=== PATIENT | male | born 1975 | race Caucasian/White ===

== ENCOUNTER 2018-02-03 12:45 | Emergency (ER) | payer OTHER ==
--- NOTE | 2018-02-03 12:58 | EDM.PDOC ---
ED HPI GENERAL MEDICAL PROBLEM - General Stated Complaint: PAIN ON RT SIDE OF FACE W/ EAR PAIN Time Seen by Provider: 02/03/18 12:58 Source of Information: Reports: Patient History Limitations: Reports: No Limitations - History of Present Illness INITIAL COMMENTS - FREE TEXT/NARRATIVE: HISTORY AND PHYSICAL: History of present illness: [Jimmy is a 42-year-old male here with complaint of right-sided facial pain. He states that 3 days in go he noticed that she would have pain to the top of his right head when he would touch it. He intermittently will get a sharp, shooting pain the top of the head and/or the right ear. He states he has a constant dull ache that is a 2 out of 10 to the right side of the cheek and head. He denies any visual disturbances, fevers, chills, weakness, headache, trauma.] Review of systems: As per history of present illness and below otherwise all systems reviewed and negative. Past medical history: As per history of present illness and as reviewed below otherwise noncontributory. Surgical history: As per history of present illness and as reviewed below otherwise noncontributory. Social history: No reported history of drug or alcohol abuse. Family history: As per history of present illness and as reviewed below otherwise noncontributory. Physical exam: General: Patient sitting comfortably in no acute distress HEENT: Atraumatic, normocephalic, pupils reactive, EOM intact. Negative for conjunctival pallor or scleral icterus. Mucous membranes moist, throat clear. Neck supple, nontender. No tenderness to palpation or bulging of right temporal artery. Lungs: Clear to auscultation, breath sounds equal bilaterally, chest nontender. Heart: S1S2, regular, negative for clicks, rubs, or JVD. Neuro: Awake, alert, oriented. Cranial nerves II through XII unremarkable. Cerebellum unremarkable. Motor and sensory unremarkable throughout. Exam nonfocal. Notes: Diagnostics: Therapeutics: [Toradol 60mg IM] Gabapentin 300mg BID Impression: [Trigeminal neuralgia] Plan: [#1 Take gabapentin as instructed #2 Follow up with primary care provider #3 Return to ED as needed as discussed] Definitive disposition and diagnosis as appropriate pending reevaluation and review of above. Right Head Pain Score (Numeric/FACES): 2 - Related Data Allergies Allergy/AdvReac Type Severity Reaction Status Date / Time No Known Allergies Allergy Verified 02/03/18 13:12 Home Meds: Home Meds Gabapentin [Neurontin] 300 mg PO BID #15 capsule 02/03/18 [Rx] lamoTRIgine [Lamotrigine ER] 50 mg PO DAILY 02/03/18 [History] ED ROS ENT - Review of Systems Review Of Systems: ROS reveals no pertinent complaints other than HPI. ED EXAM, ENT - Physical Exam Exam: See Below (see dictation) Course - Vital Signs Last Recorded V/S: Last Vital Signs Temp 36.3 C 02/03/18 13:00 Pulse 96 02/03/18 13:00 Resp 16 02/03/18 13:00 BP 141/72 H 02/03/18 13:00 Pulse Ox 96 02/03/18 13:00 - Orders/Labs/Meds Meds: Medications Discontinued Medications Generic Name Dose Route Start Last Admin Trade Name Freq PRN Reason Stop Dose Admin Ketorolac Tromethamine 60 mg 02/03/18 13:16 Toradol IM 02/03/18 13:17 ONETIME ONE Departure - Departure Time of Disposition: 13:25 Disposition: Home, Self-Care 01 Condition: Good Clinical Impression: Trigeminal neuralgia - Discharge Information Prescriptions: Gabapentin [Neurontin] 300 mg PO BID #15 capsule Referrals: PCP,None [Primary Care Provider] - Additional Instructions: The following information is given to patients seen in the emergency department who are being discharged to home. This information is to outline your options for follow-up care. We provide all patients seen in our emergency department with a follow-up referral. The need for follow-up, as well as the timing and circumstances, are variable depending upon the specifics of your emergency department visit. If you don't have a primary care physician on staff, we will provide you with a referral. We always advise you to contact your personal physician following an emergency department visit to inform them of the circumstance of the visit and for follow-up with them and/or the need for any referrals to a consulting specialist. The emergency department will also refer you to a specialist when appropriate. This referral assures that you have the opportunity for follow-up care with a specialist. All of these measure are taken in an effort to provide you with optimal care, which includes your follow-up. Under all circumstances we always encourage you to contact your private physician who remains a resource for coordinating your care. When calling for follow-up care, please make the office aware that this follow-up is from your recent emergency room visit. If for any reason you are refused follow-up, please contact the Emergency Department at and asked to speak to the emergency department charge nurse. Primary [facility] [address] [place] [id number] [facility] [address] [place] [id number] #1 Take gabapentin as instructed #2 Follow up with primary care provider #3 Return to ED as needed as discussed
[2018-02-03] MEDS ORDERED: Ketorolac 60 MG/2 ML SDV IM ONE (13:16)
== END 2018-02-03 13:52 | disposition home or self-care (01) ==
LOC: MW.ED 12:45
DX: G50.0 Trigeminal neuralgia (principal)
CPT/HCPCS: 96372; 99282; J1885; 99283